=== PATIENT | male | born 1980 | race Caucasian/White ===

== ENCOUNTER 2016-04-07 10:55 | Emergency (ER) | payer OTHER, SELFPAY ==
--- NOTE | 2016-04-07 12:03 | EDDOCDS ---
Physician Documentation [facility] Name: Jas Jesus Age: 35 yrs Sex: Male : 1980 Arrival Date: 04/07/2016 Time: 10:55 Bed Triage 1 Private MD: NO PRIMARY PHYSICIAN, . Disposition: 04/07/16 11:56 Discharged to Home/Self Care. Impression: Acute nasopharyngitis [common cold]. - Condition is Stable. - Discharge Instructions: Upper Respiratory Infection, Adult, Cool Mist Vaporizers, Viral Infections, [id number]. - Medication Reconciliation, Local Pharmacy Hours form. - Follow up: Private Physician; When: Call to arrange an appointment; Reason: Further diagnostic work-up, Recheck today's complaints, Continuance of care. - Problem is new. - Symptoms are resolved. Historical: - Allergies: PENICILLINS; - Home Meds: 1. none - PMHx: none; - PSHx: Lithotripsy; - Social history: Smoking status: Patient states was never smoker of tobacco. No barriers to communication noted, The patient speaks fluent Uzbek, Speaks appropriately for age. - Family history: Not pertinent. - : The pt / caregiver states he / she is not on anticoagulants. Home medication list is obtained from the patient. - Exposure Risk Screening:: None identified. Vital Signs: 04/07 10:57 BP 155 / 97; Pulse 89; Resp 18; Temp 97.0(O); Pulse Ox 98% on R/A; Weight 88.45 kg / dem1 195 lbs; Height 5 ft. 6 in. (167.64 cm); Pain 0/10; 10:57 Body Mass Index 31.47 (88.45 kg, 167.64 cm) dem1 MDM: 12:01 Financial registration complete. lg Signatures: Ajay Steel, Juan Reg lg Marilu Chavez RN RN ck1 Prosper Sousa PA PA btw MTDD
--- NOTE | 2016-04-07 12:03 | EDDOCDS ---
Nurse's Notes [facility] Name: Jas Jesus Age: 35 yrs Sex: Male : 1980 Arrival Date: 04/07/2016 Time: 10:55 Bed Triage 1 Private MD: NO PRIMARY PHYSICIAN, . Diagnosis: Acute nasopharyngitis [common cold] Presentation: 04/07 11:10 Presenting complaint: Patient states: Intermittent fever, none for the past two days. ck1 States a lot of people have had the flu at work, missed a couple days at work, states "I need clearance that I dont have the flu to return to work". Adult Sepsis Screening: The patient does not have new or worsening altered mentation. Patient's respiratory rate is less than 22. Systolic blood pressure is greater than 100. Patient has a qSOFA score of 0- Negative Sepsis Screen. Suicide/Homicide risk assessment- the patient denies having any suicidal and/or homicidal ideations and does not present with any other emotional, behavioral or mental health complaints. Status: The patient is a dependent. Transition of care: patient was not received from another setting of care. 11:10 Acuity: STACY Level 4 ck1 11:10 Method Of Arrival: Walkin/Carried/Asstd ck1 Triage Assessment: 11:13 General: Appears in no apparent distress, comfortable, Behavior is appropriate for age, ck1 cooperative. Pain: Denies pain. HIV screening NA for this visit Offered previously. Neurological: No deficits noted. Respiratory: No deficits noted. Derm: Skin is pink, warm & dry. Historical: - Allergies: PENICILLINS; - Home Meds: 1. none - PMHx: none; - PSHx: Lithotripsy; - Social history: Smoking status: Patient states was never smoker of tobacco. No barriers to communication noted, The patient speaks fluent Japanese, Speaks appropriately for age. - Family history: Not pertinent. - : The pt / caregiver states he / she is not on anticoagulants. Home medication list is obtained from the patient. - Exposure Risk Screening:: None identified. Screenin:01 Screening information is obtained from the patient. Fall risk: No risks identified. ck1 Assistance ADL's: requires no assistance with activities of daily living. Abuse/DV Screen: The patient / caregiver reports he/she is: not in a situation that causes fear, pain or injury. Nutritional screening: No deficits noted. Advance Directives: Currently, there is no health care proxy. home support is adequate. Assessment: 12:02 General: Appears in no apparent distress, comfortable, Behavior is appropriate for age, ck1 cooperative. Pain: Denies pain. Neurological: Level of Consciousness is awake, alert, obeys commands, Oriented to person, place, time. Respiratory: Airway is patent Respiratory effort is even, unlabored, Respiratory pattern is regular, symmetrical. Derm: Skin is intact, is healthy with good turgor, Skin is pink, warm & dry. Musculoskeletal: Circulation, motion, and sensation intact Range of motion intact in all extremities. Vital Signs: 10:57 BP 155 / 97; Pulse 89; Resp 18; Temp 97.0(O); Pulse Ox 98% on R/A; Weight 88.45 kg; dem1 Height 5 ft. 6 in. (167.64 cm); Pain 0/10; 10:57 Body Mass Index 31.47 (88.45 kg, 167.64 cm) [facility] Vitals: 10:57 Log In Time: April 07, 2016 at 10:54. [facility] ED Course: 10:57 Patient visited by Maureen Jane. dem1 10:57 NO PRIMARY PHYSICIAN, . is Private Physician. [facility] 10:57 Patient moved to Waiting dem1 10:58 Patient moved to Pre RCE dem1 11:12 Triage Initiated ck1 11:38 Patient moved to Triage 1 jjr 11:39 Patient visited by Marilu Chavez RN. ck1 11:40 Prosper Sousa PA is PHCP. btw 11:40 Bailee Owen MD is Attending Physician. btw 11:40 Patient visited by Prosper Sousa PA. btw 12:01 The patient / caregiver is instructed regarding the plan of care and ED course. ck1 12:01 No IV's were initiated during this patient's visit. No procedures done that require ck1 assistance. Order Results: There are currently no results for this order. Outcome: 11:56 Discharge ordered by Provider. btw 12:01 Discharge Assessment: Patient awake, alert and oriented x 3. No cognitive and/or ck1 functional deficits noted. Patient verbalized understanding of disposition instructions. patient administered narcotics - no. The following High Risk Discharge criteria are identified: None. Discharged to home ambulatory. Condition: stable. Discharge instructions given to patient. No special radiology studies were completed. Property :Personal belongings accompany Pt. 12:02 Patient left the ED. ck1 Signatures: Marilu ChavezRN RN ck1 Perla Calhoun RN RN Prosper Lock PA PA btw Mack, Demeishia dem1 MTDD
--- NOTE | 2016-04-09 13:03 | EDDOCDS ---
Physician Documentation [facility] Name: Jas Jesus Age: 35 yrs Sex: Male : 1980 Arrival Date: 04/07/2016 Time: 10:55 Bed Triage 1 Private MD: NO PRIMARY PHYSICIAN, . Disposition: 04/07/16 11:56 Discharged to Home/Self Care. Impression: Acute nasopharyngitis [common cold]. - Condition is Stable. - Discharge Instructions: Upper Respiratory Infection, Adult, Cool Mist Vaporizers, Viral Infections, [id number]. - Medication Reconciliation, Local Pharmacy Hours form. - Follow up: Private Physician; When: Call to arrange an appointment; Reason: Further diagnostic work-up, Recheck today's complaints, Continuance of care. - Problem is new. - Symptoms are resolved. Historical: - Allergies: PENICILLINS; - Home Meds: 1. none - PMHx: none; - PSHx: Lithotripsy; - Social history: Smoking status: Patient states was never smoker of tobacco. No barriers to communication noted, The patient speaks fluent Greenlandic, Speaks appropriately for age. - Family history: Not pertinent. - : The pt / caregiver states he / she is not on anticoagulants. Home medication list is obtained from the patient. - Exposure Risk Screening:: None identified. Vital Signs: 04/07 10:57 BP 155 / 97; Pulse 89; Resp 18; Temp 97.0(O); Pulse Ox 98% on R/A; Weight 88.45 kg / dem1 195 lbs; Height 5 ft. 6 in. (167.64 cm); Pain 0/10; 10:57 Body Mass Index 31.47 (88.45 kg, 167.64 cm) dem1 MDM: 12:01 Financial registration complete. lg 12:52 [facility] Payment Agreement was scanned into [employer] and attached to record. lg 14:44 T-Sheet-- Draft Copy was scanned into [employer] and attached to record. gb Signatures: Rachelle James, Reg Reg gb Ajay Steel, Reg Reg lg Marilu Chavez RN RN ck1 Prosper Sousa PA PA btw The chart was reviewed and I authenticate all verbal orders and agree with the evaluation and treatment provided.Attachments: 12:52 [facility] Payment Agreement lg 14:44 T-Sheet-- Draft Copy gb Chart Complete MTDD
--- NOTE | 2016-04-09 13:03 | EDDOCDS ---
Physician Documentation [facility] Name: Jas Jesus Age: 35 yrs Sex: Male : 1980 Arrival Date: 04/07/2016 Time: 10:55 Bed Triage 1 Private MD: NO PRIMARY PHYSICIAN, . Disposition: 04/07/16 11:56 Discharged to Home/Self Care. Impression: Acute nasopharyngitis [common cold]. - Condition is Stable. - Discharge Instructions: Upper Respiratory Infection, Adult, Cool Mist Vaporizers, Viral Infections, [id number]. - Medication Reconciliation, Local Pharmacy Hours form. - Follow up: Private Physician; When: Call to arrange an appointment; Reason: Further diagnostic work-up, Recheck today's complaints, Continuance of care. - Problem is new. - Symptoms are resolved. Historical: - Allergies: PENICILLINS; - Home Meds: 1. none - PMHx: none; - PSHx: Lithotripsy; - Social history: Smoking status: Patient states was never smoker of tobacco. No barriers to communication noted, The patient speaks fluent Cymraes, Speaks appropriately for age. - Family history: Not pertinent. - : The pt / caregiver states he / she is not on anticoagulants. Home medication list is obtained from the patient. - Exposure Risk Screening:: None identified. Vital Signs: 04/07 10:57 BP 155 / 97; Pulse 89; Resp 18; Temp 97.0(O); Pulse Ox 98% on R/A; Weight 88.45 kg / dem1 195 lbs; Height 5 ft. 6 in. (167.64 cm); Pain 0/10; 10:57 Body Mass Index 31.47 (88.45 kg, 167.64 cm) dem1 MDM: 12:01 Financial registration complete. lg 12:52 [facility] Payment Agreement was scanned into [employer] and attached to record. lg 14:44 T-Sheet-- Draft Copy was scanned into [employer] and attached to record. gb Signatures: Rachelle James, Reg Reg gb Ajay Steel, Reg Reg lg Marilu Chavez RN RN ck1 Prosper Sousa PA PA btw The chart was reviewed and I authenticate all verbal orders and agree with the evaluation and treatment provided.Attachments: 12:52 [facility] Payment Agreement lg 14:44 T-Sheet-- Draft Copy gb Chart Complete MTDD
--- NOTE | 2016-04-09 13:03 | EDDOCDS ---
Nurse's Notes [facility] Name: Jas Jesus Age: 35 yrs Sex: Male : 1980 Arrival Date: 04/07/2016 Time: 10:55 Bed Triage 1 Private MD: NO PRIMARY PHYSICIAN, . Diagnosis: Acute nasopharyngitis [common cold] Presentation: 04/07 11:10 Presenting complaint: Patient states: Intermittent fever, none for the past two days. ck1 States a lot of people have had the flu at work, missed a couple days at work, states "I need clearance that I dont have the flu to return to work". Adult Sepsis Screening: The patient does not have new or worsening altered mentation. Patient's respiratory rate is less than 22. Systolic blood pressure is greater than 100. Patient has a qSOFA score of 0- Negative Sepsis Screen. Suicide/Homicide risk assessment- the patient denies having any suicidal and/or homicidal ideations and does not present with any other emotional, behavioral or mental health complaints. Status: The patient is a dependent. Transition of care: patient was not received from another setting of care. 11:10 Acuity: STACY Level 4 ck1 11:10 Method Of Arrival: Walkin/Carried/Asstd ck1 Triage Assessment: 11:13 General: Appears in no apparent distress, comfortable, Behavior is appropriate for age, ck1 cooperative. Pain: Denies pain. HIV screening NA for this visit Offered previously. Neurological: No deficits noted. Respiratory: No deficits noted. Derm: Skin is pink, warm & dry. Historical: - Allergies: PENICILLINS; - Home Meds: 1. none - PMHx: none; - PSHx: Lithotripsy; - Social history: Smoking status: Patient states was never smoker of tobacco. No barriers to communication noted, The patient speaks fluent Faroese, Speaks appropriately for age. - Family history: Not pertinent. - : The pt / caregiver states he / she is not on anticoagulants. Home medication list is obtained from the patient. - Exposure Risk Screening:: None identified. Screenin:01 Screening information is obtained from the patient. Fall risk: No risks identified. ck1 Assistance ADL's: requires no assistance with activities of daily living. Abuse/DV Screen: The patient / caregiver reports he/she is: not in a situation that causes fear, pain or injury. Nutritional screening: No deficits noted. Advance Directives: Currently, there is no health care proxy. home support is adequate. Assessment: 12:02 General: Appears in no apparent distress, comfortable, Behavior is appropriate for age, ck1 cooperative. Pain: Denies pain. Neurological: Level of Consciousness is awake, alert, obeys commands, Oriented to person, place, time. Respiratory: Airway is patent Respiratory effort is even, unlabored, Respiratory pattern is regular, symmetrical. Derm: Skin is intact, is healthy with good turgor, Skin is pink, warm & dry. Musculoskeletal: Circulation, motion, and sensation intact Range of motion intact in all extremities. Vital Signs: 10:57 BP 155 / 97; Pulse 89; Resp 18; Temp 97.0(O); Pulse Ox 98% on R/A; Weight 88.45 kg; dem1 Height 5 ft. 6 in. (167.64 cm); Pain 0/10; 10:57 Body Mass Index 31.47 (88.45 kg, 167.64 cm) [facility] Vitals: 10:57 Log In Time: April 07, 2016 at 10:54. [facility] ED Course: 10:57 Patient visited by Maureen Jane. [facility] 10:57 NO PRIMARY PHYSICIAN, . is Private Physician. [facility] 10:57 Patient moved to Waiting dem1 10:58 Patient moved to Pre RCE dem1 11:12 Triage Initiated ck1 11:38 Patient moved to Triage 1 jjr 11:39 Patient visited by Marilu Chavez RN. ck1 11:40 Prosper Sousa PA is PHCP. btw 11:40 Bailee Owen MD is Attending Physician. btw 11:40 Patient visited by Prosper Sousa PA. btw 12:01 The patient / caregiver is instructed regarding the plan of care and ED course. ck1 12:01 No IV's were initiated during this patient's visit. No procedures done that require ck1 assistance. 12:52 [facility] Payment Agreement was scanned into [employer] and attached to record. lg 14:44 T-Sheet-- Draft Copy was scanned into [employer] and attached to record. gb Order Results: There are currently no results for this order. Outcome: 11:56 Discharge ordered by Provider. btw 12:01 Discharge Assessment: Patient awake, alert and oriented x 3. No cognitive and/or ck1 functional deficits noted. Patient verbalized understanding of disposition instructions. patient administered narcotics - no. The following High Risk Discharge criteria are identified: None. Discharged to home ambulatory. Condition: stable. Discharge instructions given to patient. No special radiology studies were completed. Property :Personal belongings accompany Pt. 12:02 Patient left the ED. ck1 Signatures: Rachelle James, Reg Reg gb Ajay Steel, Reg Reg lg Marilu Chavez,RN RN ck1 Perla Calhoun RN RN Prosper Lock PA PA btw Maureen Jane1 Chart Complete MTDD
== END 2016-04-07 12:02 | disposition home or self-care (01) ==
LOC: M ED 10:55
DX: J06.9 Acute upper respiratory infection, unspecified (principal); Z88.0 Allergy status to penicillin

== ENCOUNTER 2016-12-08 09:19 | Emergency (ER) | payer OTHER, SELFPAY ==
[~2016-12-08] VITALS: Ht 168.9 cm; Wt 86.4 kg
[2016-12-08 09:19] VITALS: BP 154/90
[2016-12-08] MEDS ORDERED: CYCL10TA PO (09:48)
[2016-12-08] MEDS ORDERED: IBUP-1022 PO (09:48)
== END 2016-12-08 10:08 | disposition home or self-care (01) ==
LOC: M ED 09:19
DX: S23.3XXA Sprain of ligaments of thoracic spine, initial encounter (principal); X58.XXXA Exposure to other specified factors, initial encounter; Y92.9 Unspecified place or not applicable; Y99.9 Unspecified external cause status; Y93.9 Activity, unspecified; Z88.0 Allergy status to penicillin

== ENCOUNTER → 2017-01-15 | Outpatient (REF) | payer SELFPAY ==
[~2017-01-15] MED LIST: CYCL10TA PO; IBUP-1022 PO
[2017-01-15 16:18] LABS: BASO % 0.4 % (0.0-1.0); EOS # 0.1 10^3/uL (0.0-0.50); EOS % 0.7 % (0.0-3.0); IMMATURE GRANULOCYTE % 0.2 % (0-0); LYMPH # 2.1 10^3/uL (1.5-4.5); LYMPH % 24.3 % (24.0-44.0); MEAN CORPUSCULAR HEMOGLOBIN 29.2 pg (27.0-33.0); MEAN CORPUSCULAR HGB CONC 33.4 g/dl (32.0-36.5); MEAN CORPUSCULAR VOLUME 87.3 fl (80.0-96.0); MONO # 0.5 10^3/uL (0.0-0.8); MONO % 6.3 % (0.0-5.0); NEUTROPHILS # 5.8 10^3/uL (1.8-7.7); NEUTROPHILS % 68.1 % (36.0-66.0); PLATELET COUNT, AUTOMATED 274 10^3/uL (150-450); RED CELL DISTRIBUTION WIDTH 13.3 % (11.5-14.5); WHITE BLOOD COUNT 8.5 10^3/uL (4.0-10.0)
[2017-01-15 16:41] LABS: ALBUMIN 4.1 GM/DL (3.2-5.2); ALBUMIN/GLOBULIN RATIO 1.37 (1.00-1.93); ALKALINE PHOSPHATASE 67 U/L (45-117); ALT/SGPT 111 U/L (12-78); ANION GAP 7 MEQ/L (8-16); AST/SGOT 43 U/L (7-37); BILIRUBIN,TOTAL 0.3 MG/DL (0.2-1.0); BLOOD UREA NITROGEN 14 MG/DL (7-18); CALCIUM LEVEL 8.8 MG/DL (8.5-10.1); CARBON DIOXIDE LEVEL 28 MEQ/L (21-32); CHLORIDE LEVEL 105 MEQ/L (98-107); CREATININE FOR GFR 0.99 MG/DL (0.70-1.30); FREE T4 0.84 NG/DL (0.76-1.46); GLOMERULAR FILTRATION RATE > 60.0 (>60); GLUCOSE, FASTING 83 MG/DL (70-105); POTASSIUM SERUM 4.4 MEQ/L (3.5-5.1); SODIUM LEVEL 140 MEQ/L (136-145); TOTAL PROTEIN 7.1 GM/DL (6.4-8.2)
[2017-01-17 10:50] LABS: HEPATITIS B SURFACE ANTIBODY POSITIVE (POSITIVE)
[2017-01-19 00:08] LABS: CHLAMYDIA PHARYNGEAL APTIMA Negative (Negative); GC PHARYNGEAL APTIMA Negative (Negative)
== END ==
LOC: M SFHCPLAZ 11:48
PROVIDERS: ATTEND Internal Medicine Infectious Disease
DX: Z72.52 High risk homosexual behavior (principal); R63.5 Abnormal weight gain

== ENCOUNTER 2017-07-02 08:05 | Emergency (ER) | payer OTHER, SELFPAY ==
[2017-07-02] MEDS: ALBUTEROL SULFATE 2.5 MG/0.5 ML INH NEB SOLN NEB (08:42)
[2017-07-02] MEDS: CLINDAMYCIN 150 MG CAP PO (08:45)
[2017-07-02] MEDS: predniSONE 20 MG TAB PO (08:45)
== END 2017-07-02 09:37 | disposition home or self-care (01) ==
LOC: M ED 08:05
DX: J20.9 Acute bronchitis, unspecified (principal); K11.20 Sialoadenitis, unspecified; Z79.899 Other long term (current) drug therapy; Z88.0 Allergy status to penicillin
CPT/HCPCS: 94640

== ENCOUNTER 2018-01-22 21:38 | Emergency (ER) | payer OTHER | END 2018-01-22 21:56 | disposition left against medical advice (07) | LOC: M ED 21:38 | DX: J34.89 Other specified disorders of nose and nasal sinuses (principal); Z53.21 Procedure and treatment not carried out due to patient leaving prior to being seen by health care provider ==